=== PATIENT | male | born 2000 | race Caucasian/White ===

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

== ENCOUNTER 2019-03-28 11:26 | Emergency (ER) | payer BC ==
[~2019-03-28] VITALS: Ht 182.9 cm; Wt 69.2 kg
[~2019-03-28 11:26] MED LIST: CEPH-443 PO; ERYT1OIN6 LEFT EYE; SILV20CR13 TOP; SULF1TAB31 PO
[2019-03-28 11:39] VITALS: BP 111/64; PULSE 114; RESP 22; Ht 182.9 cm; Wt 69.2 kg
--- NOTE | 2019-03-28 13:27 | ERD ---
ER Documentation Chief Complaint Chief Complaint left eye swelling/pain HPI 18-year-old male presenting with swelling to the left eyelid x48 hours. Patient states that there is not glued shut when he wakes up. He denies any medications denies use of contacts or glasses. Denies any visual changes. Has never had t his before. Denies other medical problems. NKDA. Surgical history denies. Social history denies ROS All systems reviewed and are negative except as per history of present illness. Medications Home Meds Active Scripts Erythromycin Base (Erythromycin) 1 Gm Oint...g., 1 APPLIC LEFT EYE QID for 7 Days Prov:SARABJIT DUBOSE PA-C 03/28/19 Silver Sulfadiazine* (SSD*) 1% - 20 Gm Cream.gm., 1 APPLIC TOP BID for 10 Days, #1 TUB Prov:ERIC TROTTER PA-C 05/01/18 Cephalexin* (Keflex*) 500 Mg Capsule, 500 MG PO QID for 10 Days, CAP Prov:ERIC TROTTER PA-C 05/01/18 Allergies Allergies: Coded Allergies: No Known Allergy (Unverified , 05/01/18) PMhx/Soc History of Surgery: No Anesthesia Reaction: No Hx Neurological Disorder: No Hx Respiratory Disorders: No Hx Cardiac Disorders: No Hx Psychiatric Problems: No Hx Miscellaneous Medical Probl: No Hx Alcohol Use: No Hx Substance Use: No Hx Tobacco Use: No FmHx Family History: No diabetes, No coronary disease, No other Physical Exam Vitals Vital Signs Date Temp Pulse Resp B/P (MAP) Pulse Ox O2 O2 Flow FiO2 Time Delivery Rate 03/28/19 99.9 114 22 111/64 99 11:39 (80) Physical Exam GENERAL: The patient is well-appearing, well-nourished, in no acute distress HEENT: Atraumatic. Conjunctivae are pink. Pupils equal, round, and reactive to light. There is no scleral icterus. Tympanic membranes clear bilaterally. Oropharynx clear. Erythema and swelling noted to the left upper eyelid with no surrounding soft tissue swelling. No pain with ocular movement. NECK: C-spine is soft and supple. There is no meningismus. There is no cervical lymphadenopathy. CHEST: Clear to auscultation bilaterally. There are no rales, wheezes or rhonchi. HEART: Regular rate and rhythm. No murmurs, clicks, rubs or gallops. Procedures/MDM MDM: 18-year-old male presenting with findings consistent with blepharitis. I have low suspicion for periorbital or orbital cellulitis. I do not feel that oral antibiotics are indicated. Patient is discharged with ophthalmic drops and recommendations applying warm compresses 4 times a day. I have low suspicion for bacterial conjunctivitis and I do not feel treatment for bacterial conjuncti vitis is warranted. Patient is discharged with strict ER precautions and told to follow-up with primary care within 1 to 2 days for close evaluation. All questions answered at discharge Departure Diagnosis: Primary Impression: Blepharitis Condition: Stable Patient Instructions: Blepharitis Referrals: [facility] YOU HAVE RECEIVED A MEDICAL SCREENING EXAM AND THE RESULTS INDICATE THAT YOU DO NOT HAVE A CONDITION THAT REQUIRES URGENT TREATMENT IN THE EMERGENCY DEPARTMENT. FURTHER EVALUATION AND TREATMENT OF YOUR CONDITION CAN WAIT UNTIL YOU ARE SEEN IN YOUR DOCTORS OFFICE WITHIN THE NEXT 1-2 DAYS. IT IS YOUR RESPONSIBILITY TO MAKE AN APPOINTMENT FOR FOLOW-UP CARE. IF YOU HAVE A PRIMARY DOCTOR --you should call your primary doctor and schedule an appointment IF YOU DO NOT HAVE A PRIMARY DOCTOR YOU CAN CALL OUR PHYSICIAN REFERRAL HOTLINE AT IF YOU CAN NOT AFFORD TO SEE A PHYSICIAN YOU CAN CHOSE FROM THE FOLLOWING [facility] CLINICS [facility] [address] [facility]. [facility] [address] [facility] [address] [facility]. [facility] [address] [facility] [address] [facility]. [employer] [address] Additional Instructions: FOLLOW UP WITH YOUR PRIMARY CARE PHYSICIAN TOMORROW.Return to this facility if you are not improving as expected. SARABJIT DUBOSE PA-C Mar 28, 2019 13:27
== END 2019-03-28 12:25 | disposition home or self-care (01) ==
LOC: FTE 11:26
DX: H01.004 Unspecified blepharitis left upper eyelid (principal)
CPT/HCPCS: 99283

== ENCOUNTER 2019-04-01 17:42 | Emergency (ER) | payer BC ==
[~2019-04-01] VITALS: Ht 182.9 cm; Wt 69.9 kg
[~2019-04-01 17:42] MED LIST changes: -SULF1TAB31 PO
[2019-04-01 17:44] VITALS: Ht 182.9 cm; Wt 69.9 kg
[2019-04-01] MEDS ORDERED: SULF1TAB31 PO (18:28)
--- NOTE | 2019-04-01 18:44 | ERD ---
ER Documentation Chief Complaint Chief Complaint lt eye iiritation HPI This is a 18-year-old male presenting with left lower eyelid swelling x4 days. Patient denies any use of contacts or glasses. Denies any visual changes, blurry vision, changes in vision, eye pain, eye redness. Patient states that he was seen here 2 days ago and given erythromycin ointment but has not seen any improvement in swelling. ROS All systems reviewed and are negative except as per history of present illness. Medications Home Meds Active Scripts Sulfamethoxazole/Trimethoprim* (Bactrim Ds* Tablet) 1 Each Tablet, 1 TAB PO BID, #14 TAB Prov:JONATHAN LENZ PA-C 04/01/19 Erythromycin Base (Erythromycin) 1 Gm Oint...g., 1 APPLIC LEFT EYE QID for 7 Days Prov:SARABJIT DUBOSE PA-C 03/28/19 Silver Sulfadiazine* (SSD*) 1% - 20 Gm Cream.gm., 1 APPLIC TOP BID for 10 Days, #1 TUB Prov:ERIC TROTTER PA-C 05/01/18 Cephalexin* (Keflex*) 500 Mg Capsule, 500 MG PO QID for 10 Days, CAP Prov:ERIC TROTTER PA-C 05/01/18 Allergies Allergies: Coded Allergies: No Known Allergy (Unverified , 05/01/18) PMhx/Soc Medical and Surgical Hx: pt denies Medical Hx, pt denies Surgical Hx History of Surgery: No Anesthesia Reaction: No Hx Neurological Disorder: No Hx Respiratory Disorders: No Hx Cardiac Disorders: No Hx Psychiatric Problems: No Hx Miscellaneous Medical Probl: No Hx Alcohol Use: No Hx Substance Use: No Hx Tobacco Use: No Physical Exam Vitals Vital Signs Date Temp Pulse Resp B/P (MAP) Pulse Ox O2 O2 Flow FiO2 Time Delivery Rate 04/01/19 99.5 102 18 119/67 98 17:44 (84) Physical Exam Physical Exam Vitals signs: Reviewed by me. General: Well developed, well nourished, in no acute distress. Patient is awake and alert. Head: Normocephalic, atraumatic. Eyes: Normal conjunctiva, pupils PERRLA, EOM intact bilaterally x6 without pain, there is no scleral icterus, there is mild erythema and swelling noted to the left lower eyelid with no surrounding soft tissue swelling. ENT: Pharynx is clear, Moist mucous membranes, external ears, nose and mouth normal Neck: Supple, no masses, lymphadenopathy or JVD Respiratory: No respiratory distress Neurologic: Alert and oriented, moving all extremities, normal speech, no focal weakness, no cerebellar signs. Normal mentation Skin: warm and dry, No rash Psych: Normal mood Procedures/MDM ER COURSE: The patient was stable throughout ED course. I kept the patient and/or family informed of laboratory and diagnostic imaging results throughout the emergency room course. The patient was promptly evaluated and a treatment plan was devised based on H&P and other data. This plan was discussed with the patient who agreed and had no further questions or concerns prior to discharge. MEDICAL DECISION MAKING: This is a 18-year-old male presents ED with findings consistent with external hordeolum of left lower eyelid. Patient was given erythromycin ointment and is tried warm compresses at home but has not seen any relief in the stye. I will send patient home on oral antibiotics. At this time there is no evidence of ophthalmic emergency. Patient is no pain with eye movements and there is no evidence of periorbital or orbital cellulitis. There is also no evidence of globe perforation, acute angle glaucoma, among others. Patient was advised to follow-up with primary care physician in the next 48 hours. Patient was also advised to follow-up with ophthalmology if stye does not improve. Return to ED with any worsening symptoms DISPOSITION PLAN: We discussed follow up with the patient's primary care doctor within 24 to 48 hours. Patient counseled regarding my diagnostic impression and care plan. Prior to discharge all questions answered. Pt agrees with treatment plan and understands strict return precautions. Precautionary instructions provided including instructions to return to the ER if not improving or for any worsening or changing symptoms or concerns. ExitCare instructions provided. Prior to discharge, patients vital signs have been reviewed SPECIALIST FOLLOW UP RECOMMENDED: None Patient has been advised to follow up with primary care in 1-2 days. Disclaimer: Inadvertent spelling and grammatical errors are likely due to EHR/dictation software use and do not reflect on the overall quality of patient care. Also, please note that the electronic time recorded on this note does not necessarily reflect the actual time of the patient encounter. Departure Diagnosis: Primary Impression: Hordeolum externum left lower eyelid Condition: Stable Patient Instructions: Sty Referrals: COMMUNITY CLINICS YOU HAVE RECEIVED A MEDICAL SCREENING EXAM AND THE RESULTS INDICATE THAT YOU DO NOT HAVE A CONDITION THAT REQUIRES URGENT TREATMENT IN THE EMERGENCY DEPARTMENT. FURTHER EVALUATION AND TREATMENT OF YOUR CONDITION CAN WAIT UNTIL YOU ARE SEEN IN YOUR DOCTORS OFFICE WITHIN THE NEXT 1-2 DAYS. IT IS YOUR RESPONSIBILITY TO MAKE AN APPOINTMENT FOR FOLOW-UP CARE. IF YOU HAVE A PRIMARY DOCTOR --you should call your primary doctor and schedule an appointment IF YOU DO NOT HAVE A PRIMARY DOCTOR YOU CAN CALL OUR PHYSICIAN REFERRAL HOTLINE AT IF YOU CAN NOT AFFORD TO SEE A PHYSICIAN YOU CAN CHOSE FROM THE FOLLOWING [facility] [address] [facility]. [facility] [address] [facility] [address] [facility] [address] [facility] [facility] [address] [facility]. [facility] [address] [facility]. [facility] Hours: Mon - Fri 9:00 AM - 5:00 PM Additional Instructions: Patient advised to return to the ED immediately for new or worsening symptoms. Patient advised to follow up with primary care provider in the next 24-48 hours. Patient verbalized understanding and agrees with treatment plan and course of action. If patient has no primary care they may follow up with one of the [facility] clinics listed on the following page or one of the options listed below [facility] [address] [place] [id number] or [facility] [address] [place] [address] or [facility] [address] [place] [address] JONATHAN LENZ PA-C Apr 01, 2019 18:44
[2019-04-01 18:59] VITALS: BP 116/71; PULSE 99; RESP 18
== END 2019-04-01 19:00 | disposition home or self-care (01) ==
LOC: FTE 17:42
DX: H00.015 Hordeolum externum left lower eyelid (principal)
CPT/HCPCS: 99283

== ENCOUNTER 2019-04-07 19:17 | Emergency (ER) | payer BC ==
[~2019-04-07] VITALS: Ht 182.9 cm; Wt 65.0 kg
[~2019-04-07 19:17] MED LIST changes: +SULF1TAB31 PO
[2019-04-07 19:19] VITALS: Ht 182.9 cm; Wt 65.0 kg
--- NOTE | 2019-04-07 19:41 | ERD ---
ER Documentation Chief Complaint Chief Complaint MEDICATION REFILL. HPI 18-year-old male presenting for "medication refill". He states that he was diagnosed with a stye of the left lower eyelid. He took all of his Bactrim for 7 days and it feels like he has improved. He noticed some persistent redness in the area and thought he needed more antibiotics, so he came in for that. However he is denying any pain in the eye or any discharge. No fevers or chills. He was tachycardic in triage today and he states that he has not eaten or drank anything today because he had too much to do. Otherwise he has no other symptoms. He does not feel any palpitations or chest pain. No recent illnesses. ROS All systems reviewed and are negative except as per history of present illness. Medications Home Meds Active Scripts Sulfamethoxazole/Trimethoprim* (Bactrim Ds* Tablet) 1 Each Tablet, 1 TAB PO BID, #14 TAB Prov:JONATHAN LENZ PA-C 04/01/19 Erythromycin Base (Erythromycin) 1 Gm Oint...g., 1 APPLIC LEFT EYE QID for 7 Days Prov:SARABJIT DUBOSE PA-C 03/28/19 Silver Sulfadiazine* (SSD*) 1% - 20 Gm Cream.gm., 1 APPLIC TOP BID for 10 Days, #1 TUB Prov:ERIC TROTTER PA-C 05/01/18 Cephalexin* (Keflex*) 500 Mg Capsule, 500 MG PO QID for 10 Days, CAP Prov:ERIC TROTTER PA-C 05/01/18 Allergies Allergies: Coded Allergies: No Known Allergy (Unverified , 05/01/18) PMhx/Soc Medical and Surgical Hx: pt denies Surgical Hx History of Surgery: No Anesthesia Reaction: No Hx Neurological Disorder: No Hx Respiratory Disorders: No Hx Cardiac Disorders: No Hx Psychiatric Problems: Yes (HALLUCINATIONS) Hx Miscellaneous Medical Probl: No Hx Alcohol Use: No Hx Substance Use: Yes (MARIJUANA) Hx Tobacco Use: No Smoking Status: Never smoker FmHx Family History: No diabetes Physical Exam Vitals Vital Signs Date Temp Pulse Resp B/P (MAP) Pulse Ox O2 O2 Flow FiO2 Time Delivery Rate 04/07/19 99.0 115 19:23 04/07/19 100.0 120 18 124/70 96 19:19 (88) Physical Exam Const: No acute distress Head: Atraumatic Eyes: Normal Conjunctiva. Lids non-erythematous without swelling. There is a left lower lid chalazion. No evidence of infection. ENT: Normal External Ears, Nose and Mouth. Neck: Full range of motion. No meningismus. Resp: Clear to auscultation bilaterally Cardio: Tachycardic with regular rhythm, no murmurs Abd: Soft, non tender, non distended. Normal bowel sounds Skin: No petechiae or rashes Back: No midline or flank tenderness Ext: No cyanosis, or edema Neur: Awake and alert Psych: Flat affect Procedures/MDM I explained to the patient that his infection has resolved and it does not look like he needs any antibiotics at this time. It looks like he has a chalazion of the left lower lid, for which I recommend that he follow-up with ophthalmology. With regards to his tachycardia, this is most likely secondary to dehydration and poor p.o. intake today. He was treated with oral fluids with improvement of his heart rate. His heart rate normalized to the 90s. I feel he is stable for discharge and does not require any further work-up. I do not suspect sepsis. Patient feels comfortable with discharge plan. Departure Diagnosis: Primary Impression: Chalazion left lower eyelid Additional Impression: Sinus tachycardia Condition: Stable EKCALISTA PATEL MD Apr 07, 2019 19:41
[2019-04-07 20:30] VITALS: BP 104/71; PULSE 98; RESP 19
== END 2019-04-07 20:30 | disposition home or self-care (01) ==
LOC: E/R 19:17
DX: H00.15 Chalazion left lower eyelid (principal); R00.0 Tachycardia, unspecified
CPT/HCPCS: 99282

== ENCOUNTER 2019-05-25 15:36 | Emergency (ER) | payer BC ==
[~2019-05-25] VITALS: Ht 185.4 cm; Wt 63.9 kg
[2019-05-25 15:53] VITALS: BP 109/64; PULSE 100; RESP 18; Ht 185.4 cm; Wt 63.9 kg
== END 2019-05-25 17:16 | disposition home or self-care (01) ==
LOC: FTE 15:36
DX: H00.11 Chalazion right upper eyelid (principal); H00.14 Chalazion left upper eyelid; Z87.891 Personal history of nicotine dependence
CPT/HCPCS: 99283